=== PATIENT | female | born 1985 | race Caucasian/White ===

== ENCOUNTER → 2016-11-21 | Outpatient (CLI) | payer OTHER ==
[~2016-11-21] MED LIST: ACET50TA PO; IBUP-1114 PO; PRENTAB55 PO
--- NOTE | 2016-11-21 16:19 | REP ---
Clinical: Vaginal bleeding . Technique: Transabdominal pelvic ultrasound followed by transvaginal examination for better evaluation of the endometrium and adnexa with color Doppler evaluation of the ovaries. Findings: Bladder is unremarkable and measures 10.5 x 5.5 x 6.5 cm . Normal retroverted uterus measures 10.6 x 5.2 x 5.4 cm . The endometrial complex measures 11.7 mm thickness. No discrete uterine or endometrial abnormalities are appreciated. Bilateral ovaries are normal in appearance and vascularity without evidence for torsion. Right ovary measures 4.8 x 3.0 x 3.3 cm with 2.5 cm simple cyst ; R I = 0.51 . Left ovary measures 4.6 x 1.6 x 2.2 cm ; R I = 0.53 . No pelvic free fluid or adnexal mass lesion . Impression: 1. 2.5 cm right ovarian cyst likely physiologic. Otherwise normal examination. Signed by Lane Norris MD 11/21/2016 04:09 P
== END ==
LOC: M SMT 15:01
PROVIDERS: ATTEND Obstetrics & Gynecology
DX: N93.9 Abnormal uterine and vaginal bleeding, unspecified (principal); N83.201 Unspecified ovarian cyst, right side

== ENCOUNTER → 2017-01-21 | Day surgery (SDC) | payer OTHER ==
[~2017-01-21] VITALS: Ht 160 cm; Wt 67.1 kg
[~2017-01-21] MED LIST changes: +CLINDAMYCIN 900 MG in APPROPRIATE DILUENT 1 EA IV ONE; +GENTAMICIN 100 MG in APPROPRIATE DILUENT 1 EA IV ONE; +LIDOCAINE 2% INJ 100 MG/5 ML SDV (FOR ANES.) As Ordered ONE; +LR 1,000 ML IV SCH; +MIDAZOLAM INJ 2 MG/2 ML VIAL (J2250) As Ordered ONE; +PROPOFOL 200 MG/20 ML VIAL As Ordered ONE; +ROCURONIUM BROMIDE 50 MG/5 ML VIAL As Ordered ONE; +fentaNYL 250 MCG/5 ML INJECTION (J3010) As Ordered ONE
[2017-01-21 06:18] LABS: MEAN CORPUSCULAR HEMOGLOBIN 28.3 pg (27.0-33.0); MEAN CORPUSCULAR HGB CONC 33.3 g/dl (32.0-36.5); MEAN CORPUSCULAR VOLUME 85.1 fl (80.0-96.0); RED CELL DISTRIBUTION WIDTH 12.1 % (11.5-14.5); WHITE BLOOD COUNT 4.7 K/mm3 (4.0-10.0)
[2017-01-21 06:30] LABS: CONTROL LINE HCG INT CTR LINE PRESENT
== END ==
LOC: M SDC 05:32
PROVIDERS: ATTEND Obstetrics & Gynecology
DX: Z53.09 Procedure and treatment not carried out because of other contraindication (principal); N92.0 Excessive and frequent menstruation with regular cycle; N80.9 Endometriosis, unspecified

== ENCOUNTER → 2017-01-23 | Outpatient (CLI) | payer OTHER ==
[~2017-01-23] MED LIST changes: -CLINDAMYCIN 900 MG in APPROPRIATE DILUENT 1 EA IV ONE; -GENTAMICIN 100 MG in APPROPRIATE DILUENT 1 EA IV ONE; -LIDOCAINE 2% INJ 100 MG/5 ML SDV (FOR ANES.) As Ordered ONE; -LR 1,000 ML IV SCH; -MIDAZOLAM INJ 2 MG/2 ML VIAL (J2250) As Ordered ONE; -PROPOFOL 200 MG/20 ML VIAL As Ordered ONE; -ROCURONIUM BROMIDE 50 MG/5 ML VIAL As Ordered ONE; -fentaNYL 250 MCG/5 ML INJECTION (J3010) As Ordered ONE
== END ==
LOC: M SMT 09:16
PROVIDERS: ATTEND Obstetrics & Gynecology
DX: N91.2 Amenorrhea, unspecified (principal)

== ENCOUNTER 2017-02-25 13:20 | Emergency (ER) | payer OTHER ==
[~2017-02-25] VITALS: Ht 160 cm; Wt 66.7 kg
[2017-02-25] MEDS ORDERED: PRENTAB16 PO (13:30)
[2017-02-25] MEDS ORDERED: NS 1,000 ML IV ONE (14:00)
[2017-02-25] MEDS ORDERED: MECLIZINE 25 MG TABLET PO ONE (14:00)
[2017-02-25 14:40] LABS: MEAN CORPUSCULAR HGB CONC 33.8 g/dl (32.0-36.5); MEAN CORPUSCULAR VOLUME 85.6 fl (80.0-96.0); PLATELET COUNT, AUTOMATED 232 k/mm3 (150-450); RED CELL DISTRIBUTION WIDTH 11.9 % (11.5-14.5); WHITE BLOOD COUNT 5.1 K/mm3 (4.0-10.0)
[2017-02-25 14:41] LABS: BASO % 0.5 % (0.0-1.0); DIFF SLIDE NUMBER 276; EOS % 0.7 % (0.0-3.0); LARGE UNSTAINED CELL # 0.1 K/mm3 (0.0-0.4); LARGE UNSTAINED CELL % 1.4 % (0.0-4.0); LYMPH # 1.3 K/mm3 (1.5-6.5); LYMPH % 25.1 % (24.0-44.0); MONO # 0.2 K/mm3 (0.0-0.8); MONO % 3.7 % (0.0-5.0); NEUTROPHILS # 3.5 K/mm3 (1.8-7.7); NEUTROPHILS % 68.6 % (36.0-66.0)
[2017-02-25] MEDS ORDERED: diphenhydrAMINE INJ 50MG/ML VIAL (J1200) IV STA (15:11)
[2017-02-25] MEDS ORDERED: METOCLOPRAMIDE INJ 10MG/2ML VIAL (J2765) IV ONE (15:15)
[2017-02-25 15:17] LABS: ALBUMIN 3.5 GM/DL (3.2-5.2); ALKALINE PHOSPHATASE 39 U/L (45-117); ALT/SGPT 14 U/L (12-78); ANION GAP 6 MEQ/L (8-16); AST/SGOT 15 U/L (15-37); BILIRUBIN,DIRECT 0.1 MG/DL (0.0-0.2); BILIRUBIN,TOTAL 0.5 MG/DL (0.2-1.0); BLOOD UREA NITROGEN 9 MG/DL (7-18); CARBON DIOXIDE LEVEL 26 MEQ/L (21-32); CHLORIDE LEVEL 105 MEQ/L (98-107); CREATININE FOR GFR 0.55 MG/DL (0.55-1.02); FERRITIN 14 NG/ML (8-252); FREE T4 0.89 NG/DL (0.76-1.46); GLOMERULAR FILTRATION RATE > 60.0 (>60); GLUCOSE, FASTING 82 MG/DL (70-105); HCG, SERUM QUANTITATIVE 43158 MIU/ML; PERCENT SATURATION 24.9 % (13.2-37.4); POTASSIUM SERUM 3.9 MEQ/L (3.5-5.1); SODIUM LEVEL 137 MEQ/L (136-145); TOTAL IRON BINDING CAPACITY 377 UG/DL (250-450)
[2017-02-25] MEDS ORDERED: ACETAMINOPHEN 325 MG TAB PO ONE (15:30)
[2017-02-25] MEDS ORDERED: MECL-68 PO (15:56)
[2017-02-25 16:20] VITALS: BP 108/61
== END 2017-02-25 16:26 | disposition home or self-care (01) ==
LOC: M ED 14:01
DX: O99.89 Other specified diseases and conditions complicating pregnancy, childbirth and the puerperium (principal); H81.11 Benign paroxysmal vertigo, right ear; H81.391 Other peripheral vertigo, right ear; Z3A.09 9 weeks gestation of pregnancy; Z85.41 Personal history of malignant neoplasm of cervix uteri; R51 Headache; F41.9 Anxiety disorder, unspecified; Z79.899 Other long term (current) drug therapy; Z91.040 Latex allergy status; Z88.5 Allergy status to narcotic agent; Z88.0 Allergy status to penicillin
CPT/HCPCS: 80048; 80076; 81001; 82728; 83550; 84439; 84443; 84702; 85025; 86901; 96374; 96375; 99283; J1200; J2765

== ENCOUNTER → 2017-03-10 | Outpatient (CLI) | payer OTHER ==
[~2017-03-10] MED LIST changes: +MECL-68 PO; +PRENTAB16 PO
[2017-03-10 14:04] LABS: BASO % 0.5 % (0.0-1.0); EOS % 0.7 % (0.0-3.0); LARGE UNSTAINED CELL # 0.1 K/mm3 (0.0-0.4); LARGE UNSTAINED CELL % 1.1 % (0.0-4.0); LYMPH # 1.1 K/mm3 (1.5-6.5); LYMPH % 26.1 % (24.0-44.0); MEAN CORPUSCULAR HEMOGLOBIN 29.6 pg (27.0-33.0); MEAN CORPUSCULAR HGB CONC 33.5 g/dl (32.0-36.5); MEAN CORPUSCULAR VOLUME 88.5 fl (80.0-96.0); MONO # 0.1 K/mm3 (0.0-0.8); MONO % 3.1 % (0.0-5.0); NEUTROPHILS % 68.5 % (36.0-66.0); PLATELET COUNT, AUTOMATED 237 k/mm3 (150-450); RED CELL DISTRIBUTION WIDTH 11.8 % (11.5-14.5); WHITE BLOOD COUNT 4.4 K/mm3 (4.0-10.0)
[2017-03-11 10:18] LABS: HBsAg Prenatal NEGATIVE (NEGATIVE)
== END ==
LOC: M SMT 10:09
PROVIDERS: ATTEND Obstetrics & Gynecology
DX: Z34.81 Encounter for supervision of other normal pregnancy, first trimester (principal); Z36 Encounter for antenatal screening of mother

== ENCOUNTER → 2017-03-20 | Day surgery (SDC) | payer OTHER ==
[~2017-03-20] VITALS: Ht 160 cm; Wt 64.9 kg
[~2017-03-20] MED LIST changes: +CHLOROPROCAINE 2 % INJ PRES.FREE 20 ML VIAL (J2400) As Ordered ONE; +INDO50CA PO; +INDOMETHACIN 25 MG CAP PO PRN; +LR 1,000 ML IV ONE; +LR 1,000 ML IV SCH; +ONDANSETRON 4 MG TAB (S0181) PO PRN; +ONDANSETRON 4MG/2ML VIAL (J2405) As Ordered ONE; +ONDANSETRON 4MG/2ML VIAL (J2405) IV PRN; +PHENYLephrine HCL 500 MCG/5 ML (100MCG/ML) SYRINGE (J2370) As Ordered ONE; +SILVER NITRATE APPLICATOR As Ordered ONE; +diphenhydrAMINE 25 MG CAP PO PRN; +ePHEDrine SULFATE 25 MG/5 ML(5MG/ML) SYRINGE As Ordered ONE; +fentaNYL 100 MCG/2 ML INJECTION (J3010) As Ordered ONE; +fentaNYL 100 MCG/2 ML INJECTION (J3010) IV PRN
[2017-03-20 07:39] LABS: MEAN CORPUSCULAR HGB CONC 33.6 g/dl (32.0-36.5); MEAN CORPUSCULAR VOLUME 86.4 fl (80.0-96.0); RED CELL DISTRIBUTION WIDTH 12.2 % (11.5-14.5)
[2017-03-20 11:30] VITALS: BP 106/56
--- NOTE | 2017-03-21 12:10 | RO ---
DATE OF PROCEDURE: 03/20/2017 PREOPERATIVE DIAGNOSES: 1. History of cervical insufficiency. 2. 12 weeks and 2 days gestation. POSTOPERATIVE DIAGNOSES: 1. History of cervical insufficiency. 2. 12 weeks and 2 days gestation. PROCEDURE PERFORMED: 1. Waters cerclage 2. Cystoscopy. SURGEON: Dr. Pablo Nugent DO FACOG COMPOUNDER: ORIANA Tineo-3 ANESTHESIA: Spinal. SPECIMENS TO PATHOLOGY: None. ESTIMATED BLOOD LOSS: Less than 5 mL. FLUIDS REPLACED: 1400 mL lactated Ringer's. DRAINS: In-and-out catheter, 100 mL urine output. COMPLICATIONS: None. PREOPERATIVE ANTIBIOTICS: None indicated. INTRAOPERATIVE FINDINGS: 1. Prolene suture was used for the cerclage. The knot was tied at 12 o'clock. 2. Cystoscopic findings: bilateral utero-ovarian jets and no stitch noted in the wall of the bladder. INDICATION: 31-year-old G10, P3-0-6-3. She has a history of cervical insufficiency. Two previous pregnancies have been treated with a cerclage, and each resulted in term deliveries. PROCEDURE: The patient was counseled and consented on risks, benefits, indications and alternatives of the procedure. Informed consent was obtained. She was taken to the operating room with an IV running. She was placed on the operating table. Spinal anesthesia was administered without any difficulty. She was placed in the dorsal supine position. A time-out was performed per protocol. She was placed in the high lithotomy position. She was prepared and draped in normal sterile fashion. The bladder was drained with a sterile in-and-out catheter. An Auvard weighted speculum was placed in the posterior vagina. A Jerry retractor was placed in the anterior vagina. Using 1-Prolene suture, a five-point pursestring stitch was placed around the cervix at the level of the cervicovaginal junction. The knot was tied at 12 o'clock. Excellent hemostasis was noted throughout this process. After this stitch was placed, the patient complained of periumbilical pain that was predominately on the right side. This was after I had taken her out of the high lithotomy position. Given this complaint, she was placed back in the high lithotomy position. Given the unilateral nature of her complaint, the decision was made to proceed with a diagnostic cystoscopy to ensure that ureteral flow was still intact and there was no stitch within the bladder. A 30 degrees cystoscope was placed transurethrally into the bladder. The bladder was instilled with normal saline. The inspection of the entire bladder revealed no evidence of any suture material. Bilateral utero-ovarian efflux/jets were visualized. The cystoscope was removed. The bladder was drained. The vagina had been flushed with normal saline, no vaginal bleeding or copious amounts of discharge was noted. The patient was slowly taken out of high lithotomy position. She no longer had any complaint of periumbilical pain or right-sided abdominal pain. The decision was made to conclude the procedure. The sponge, lap, needle and instrument counts were correct. The patient was transferred to the postanesthesia care unit in good and stable condition. Of note, all instruments were removed from the vagina and confirmed by vaginal exam. KRYSTIN
== END | disposition home or self-care (01) ==
LOC: M SDC 07:11
PROVIDERS: ATTEND Obstetrics & Gynecology
DX: O34.31 Maternal care for cervical incompetence, first trimester (principal); Z3A.12 12 weeks gestation of pregnancy; K57.32 Diverticulitis of large intestine without perforation or abscess without bleeding; N85.00 Endometrial hyperplasia, unspecified; R55 Syncope and collapse; G43.909 Migraine, unspecified, not intractable, without status migrainosus; R06.83 Snoring; Z91.040 Latex allergy status; Z88.0 Allergy status to penicillin; Z88.5 Allergy status to narcotic agent; Z92.21 Personal history of antineoplastic chemotherapy; Z92.3 Personal history of irradiation; Z85.41 Personal history of malignant neoplasm of cervix uteri
CPT/HCPCS: 36415; 59320; 85027; 86850; 86900; 86901; J2370; J2400; J2405; J3010

== ENCOUNTER → 2017-05-19 | Outpatient (CLI) | payer OTHER ==
[~2017-05-19] MED LIST changes: -CHLOROPROCAINE 2 % INJ PRES.FREE 20 ML VIAL (J2400) As Ordered ONE; +FIORCAP3 PO; -INDOMETHACIN 25 MG CAP PO PRN; -LR 1,000 ML IV ONE; -LR 1,000 ML IV SCH; +NIFE10CA2 PO; -ONDANSETRON 4 MG TAB (S0181) PO PRN; -ONDANSETRON 4MG/2ML VIAL (J2405) As Ordered ONE; -ONDANSETRON 4MG/2ML VIAL (J2405) IV PRN; +OXYC1TAB23 PO; -PHENYLephrine HCL 500 MCG/5 ML (100MCG/ML) SYRINGE (J2370) As Ordered ONE; -SILVER NITRATE APPLICATOR As Ordered ONE; -diphenhydrAMINE 25 MG CAP PO PRN; -ePHEDrine SULFATE 25 MG/5 ML(5MG/ML) SYRINGE As Ordered ONE; -fentaNYL 100 MCG/2 ML INJECTION (J3010) As Ordered ONE; -fentaNYL 100 MCG/2 ML INJECTION (J3010) IV PRN
--- NOTE | 2017-05-19 23:52 | REP ---
Clinical: Anatomical evaluation. Comparison: None . Findings: Examination demonstrates a single live intrauterine in breech presentation. motion is identified by technologist. Placenta is noted posteriorly and grade zero without evidence for placenta previa or abruption. Amniotic fluid volume is normal. Cervix measures 5.3 cm in length and appears closed. No evidence for nuchal cord. Gestational age by LMP 20 weeks 6 days with PATY 09/30/2017 . Gestational age by current measurements 20 weeks 5 days with PATY 10/01/2017 . FHR equals 153 beats per minute. BPD 4.9 cm 20 weeks 6 days HC 18.4 cm 20 weeks 5 days AC 15.7 cm 20 weeks 6 days FL 3.3 cm 20 weeks 1 day HL 3.3 cm 20 weeks 6 days HC/AC ratio 1.17 Estimated weight 363 grams ( 36 percentile). Anatomical assessment demonstrates normal structures including cranium, choroid plexus, cavum, cerebellum/posterior fossa, facial features, lungs, four-chamber heart/ventricular outflow tracts, diaphragm, stomach, cord insertion/three-vessel cord, kidneys/bladder, spine, and extremities. Impression: Single live intrauterine in breech presentation demonstrating appropriate interval growth. Anatomical assessment is complete and normal. No gross abnormalities are identified. Signed by Lane Norris MD 05/19/2017 11:43 P
== END ==
LOC: M RAD 10:48
PROVIDERS: ATTEND Specialist
DX: Z34.82 Encounter for supervision of other normal pregnancy, second trimester (principal); Z36 Encounter for antenatal screening of mother; Z3A.20 20 weeks gestation of pregnancy

== ENCOUNTER → 2017-07-03 | Outpatient (CLI) | payer OTHER ==
[2017-07-03 13:22] LABS: BASO % 0.4 % (0.0-1.0); EOS % 0.9 % (0.0-3.0); LARGE UNSTAINED CELL % 0.8 % (0.0-4.0); MEAN CORPUSCULAR HEMOGLOBIN 28.5 pg (27.0-33.0); MEAN CORPUSCULAR VOLUME 86.6 fl (80.0-96.0); MONO # 0.3 K/mm3 (0.0-0.8); NEUTROPHILS # 3.6 K/mm3 (1.8-7.7); NEUTROPHILS % 72.9 % (36.0-66.0); PLATELET COUNT, AUTOMATED 183 k/mm3 (150-450); RED CELL DISTRIBUTION WIDTH 12.1 % (11.5-14.5)
== END ==
LOC: M SMT 09:55
PROVIDERS: ATTEND Obstetrics & Gynecology
DX: O09.292 Supervision of pregnancy with other poor reproductive or obstetric history, second trimester (principal)

== ENCOUNTER 2017-07-14 17:01 | Inpatient (IN) | payer OTHER ==
[~2017-07-14] VITALS: Ht 160 cm; Wt 70.0 kg
[~2017-07-14 17:01] MED LIST changes: -FIORCAP3 PO; -NIFE10CA2 PO; -OXYC1TAB23 PO
[2017-07-14 17:23] VITALS: BP 113/66
[2017-07-14] MEDS ORDERED: FIORCAP3 PO (17:36)
[2017-07-14 19:00] LABS: MEAN CORPUSCULAR HEMOGLOBIN 28.6 pg (27.0-33.0); MEAN CORPUSCULAR HGB CONC 33.8 g/dl (32.0-36.5); MEAN CORPUSCULAR VOLUME 84.6 fl (80.0-96.0); RED CELL DISTRIBUTION WIDTH 11.9 % (11.5-14.5); WHITE BLOOD COUNT 8.3 K/mm3 (4.0-10.0)
[2017-07-14 19:09] VITALS: BP 130/72
[2017-07-14] MEDS ORDERED: LR 1,000 ML IV SCH (19:33)
[2017-07-14] MEDS ORDERED: LACTATED RINGER'S 1000 ML IV STA (19:33)
[2017-07-14] MEDS ORDERED: MAG Sulf (OBGYN) 20GM/500ML 20,000 MG in APPROPRIATE DILUENT 1 EA IV SCH (19:36)
[2017-07-14] MEDS ORDERED: MAG Sulf (L&D) 4 GM/100 ML 4 GM in APPROPRIATE DILUENT 1 EA IV ONE (19:45)
[2017-07-14] MEDS ORDERED: BETAMETHASONE SOLUSPAN 6MG/ML INJ 5ML (J0702) IM SCH (19:45)
[2017-07-14] MEDS ORDERED: INDOMETHACIN 25 MG CAP PO ONE (20:00)
[2017-07-14 20:24] VITALS: BP 111/56
[2017-07-14] MEDS ORDERED: FIORICET TAB PO PRN (20:30)
--- NOTE | 2017-07-14 20:57 | HPE ---
DATE OF ADMISSION: 07/14/2017 HISTORY: A 32-year-old G10, P3-0-6-3 female at 28-6/7 weeks gestation by 7-week ultrasound, estimated date of confinement (EDC) 09/30/2017, presents with regular contractions starting at about 4 a.m. on the day of admission. Contractions increased in intensity by 2 p.m. and were every 3-4 minutes. She presented to the office and was found to have a cervix that was closed. Her history is significant for a Waters cerclage placed earlier in the due a history of cervical incompetence. When the contractions palpated to be moderate in intensity she was sent to the hospital for further evaluation and treatment. COURSE: The patient initiated care at 12 weeks gestation on 03/18/2017. Her first trimester blood pressure was 122/80, weight 144 pounds. She had Waters cervical cerclage placed on 03/20/2017 without complication. She was treated with Fioricet for daily headaches. She did not receive progesterone supplementation during . MEDICAL HISTORY: 1. Anxiety. 2. Cervical dysplasia. 3. Endometriosis. 4. History of pneumothorax, status post chest tube placement in 2010. OBSTETRICAL HISTORY: 1. January 2006, 18-week loss. 2-6 five miscarriages, including ectopic . 7. November 2013, 38-week vaginal delivery, 6-pound 1-ounce male . 8. May 2015, 38-week vaginal delivery of a 7-pound 1-ounce female. was completed by incompetent cervix with emergency cerclage at 23 weeks' gestation. 9. July 2016, 37-week vaginal delivery of a 7-pound 2-ounce female . She had prophylactic Shirodkar cerclage placed for that . SURGICAL HISTORY: 1. Cerclage times three. 2. Dilatation and curettage (DAC) times six. 3. Laparoscopic ovarian cystectomy. 4. Loop electrosurgical excision procedure (LEEP) procedure times two. 5. Chest tube placement in 2010. ALLERGIES: 1. PENICILLIN. 2. MORPHINE. 3. LATEX. SOCIAL HISTORY: The patient is . Father of the baby is in the , currently stationed in [place]. Denies cigarettes, alcohol, or drug use. PHYSICAL EXAMINATION: VITAL SIGNS: Blood pressure 130/72, pulse 112, temperature 99.1. She appears uncomfortable. HEAD AND NECK: Normal. LUNGS: Clear. HEART: Regular rate and rhythm. ABDOMEN: Nontender, gravid, heart tones category 1. Contractions every 2-4 minutes, moderate to palpation. Cervix: 1 cm, 50% effaced, soft, posterior. EXTREMITIES: Nontender. LABORATORY DATA: White blood count 8.3, hemoglobin 11.7. ASSESSMENT: A 32-year-old G10, P3 female at 28-6/7 weeks gestation by a 7-week ultrasound, presents with contractions, suspect labor. Patient will be admitted for intravenous (IV) hydration. Start magnesium sulfate for neuroprotection and will administer betamethasone for lung maturity. Will initiate indomethacin treatment for labor. Will plan to obtain an ultrasound to check cervical length and assess the fetus. If she progresses and continues to dilate, will have to remove the cerclage and contemplate transfer to [facility] in [place] for further management. KRYSTIN
[2017-07-14 21:07] VITALS: BP 102/54
[2017-07-14] MEDS ORDERED: ONDANSETRON 4MG/2ML VIAL (J2405) As Ordered ONE (21:43)
[2017-07-14] MEDS ORDERED: ONDANSETRON 4MG/2ML VIAL (J2405) IV PRN (21:45)
[2017-07-14 22:01] VITALS: BP 110/53
--- NOTE | 2017-07-14 22:30 | REPUSA ---
Clinical history: labor. Findings: Real-time transabdominal ultrasound images of the pelvis were obtained. There is a single l vinay intrauterine measuring 28 weeks 6 days by ultrasound measurements. The fetus is in a ve rtex position. A posterior placenta is noted, without evidence of placenta previa. Limited visualized anatomy is unremarkable. heart rate measures 143 bpm. Cervix measures 2 cm in length. Fu nneling of the internal cervical os is appreciated. A cerclage is in place. The patient is dilated 1. 5 cm. Amniotic fluid index measures 13.6 cm. Umbilical artery systolic/diastolic ratio measures 2.40 , with the resistive index of 0.58. Impression: 1. Single live intrauterine with heart rate of 143 bpm.. Fetus is in a vertex positio n. 2. Cervix measures 2 cm in length. Funneling of the internal cervical os is appreciated. Patient is d ilated 1.5 cm. 3. Amniotic fluid index is within normal limits.
[2017-07-14 22:57] VITALS: BP 114/58
[2017-07-14] MEDS ORDERED: CLINDAMYCIN 300 MG in APPROPRIATE DILUENT 1 EA IV ONE (23:15)
--- NOTE | 2017-07-22 16:09 | DSES ---
DATE OF ADMISSION: 07/14/2017 DATE OF DISCHARGE: 07/15/2017 HISTORY: 32-year-old 10, para 3-0-6-3 female, 28-6/7 weeks gestation by a 7-week ultrasound, presents with regular contractions about 4 a.m. on the day of admission. The contractions increased in intensity and at 2 p.m. were every 3-4 minutes. Her history is significant for a Waters cervical cerclage which was placed earlier in the due to history of cervical incompetence. Contractions were found to be moderately intense and she was sent to the hospital for further management. HOSPITAL COURSE: The patient was found to be cookie regularly and moderately strong. Her cervix dilated to 1 cm which was a change. An ultrasound showed funneling of the cervix as well as shortening of the cervix. Decision was made to treat the patient with magnesium sulfate for neuroprotection and administer betamethasone for lung maturity. The patient received indomethacin as a tocolytic. She also received IV hydration. In spite of aggressive management, the patient continued to contract with virtually no change. Contractions were intense, every 3-4 minutes. She had her cervix checked multiple times and there was no evidence of cervical change. However, due to persistent intense contractions, a consultation was obtained with the center in [place], who was in agreement to accept the patient in transfer due to the high risk of severe prematurity. On 07/14/2017, the patient was transferred to the center by ambulance. ADMISSION DIAGNOSIS: at 28-6/7 weeks gestation with pre-term contractions. DISCHARGE DIAGNOSIS: at 28-6/7 weeks gestation with pre-term contractions. DISPOSITION: Patient will be managed per the center and once stable she will be discharged home with followup in our office.
== END 2017-07-15 | disposition short-term general hospital (02) | DRG 775 ==
LOC: M LDO 17:01 → M LDI 19:31
PROVIDERS: ADMIT Specialist; ATTEND Specialist
DX: O60.12X0 Preterm labor second trimester with preterm delivery second trimester, not applicable or unspecified (principal); O34.32 Maternal care for cervical incompetence, second trimester; Z3A.28 28 weeks gestation of pregnancy; Z87.51 Personal history of pre-term labor; Z88.0 Allergy status to penicillin; Z88.5 Allergy status to narcotic agent; Z91.040 Latex allergy status

== ENCOUNTER 2017-08-05 09:33 | Outpatient (CLI) | payer OTHER ==
[~2017-08-05] VITALS: Ht 160 cm; Wt 70.5 kg
[~2017-08-05 09:33] MED LIST changes: +FIORCAP3 PO
[2017-08-05 10:07] VITALS: BP 120/66
[2017-08-05] MEDS ORDERED: NIFE10CA2 PO (10:16)
[2017-08-05] MEDS ORDERED: ACET50TA PO (10:16)
[2017-08-05] MEDS: BETAMETHASONE SOLUSPAN 6MG/ML INJ 5ML (J0702) IM SCH ×2 (10:25→22:53)
[2017-08-05 11:56] VITALS: BP 117/68
[2017-08-05 13:52] VITALS: BP 111/58
--- NOTE | 2017-08-05 15:29 | HPE ---
DATE OF ADMISSION: 08/05/2017 HISTORY: 32-year-old, 10, para 3-0-6-3 female at 32-0/7 weeks gestation by a 7 week ultrasound, estimated date of confinement (EDC) of 09/30/2017, presents to the hospital for a scheduled visit to receive her first dose of betamethasone for lung maturity. She notes that her contractions have increased in intensity early on the morning of admission and she has had increasing pelvic pressure. She has been treated with nifedipine for the last several weeks due to history of contractions and had previously been at [facility] in [place] for contractions. She has a cervical cerclage in place and is also concerned about complications with cerclage due to contractions. COURSE: The patient initiated care at 12 weeks of gestation on 03/18/2017. First trimester blood pressure 122/80, weight 144 pounds. She had a Waters cervical cerclage placed on 03/20/2017, without complication. She did not receive progesterone supplementation during due to intolerance to that medication. She was transferred to the center at [facility] on 07/14/2017, with contractions with cerclage in place. She received betamethasone at that time times two doses. She received magnesium sulfate for neurologic prophylaxis and was treated with indomethacin. She was discharged from [place] after several days of observation on nifedipine for contractions. MEDICAL HISTORY: 1. Anxiety. 2. Cervical dysplasia. 3. Endometriosis. 4. History of pneumothorax, status post chest tube placement in 2010. OBSTETRICAL HISTORY: 1: January 2006: 18 week loss. 2 through 6: Five miscarriages, including one ectopic . 7: November 2013: 38 week vaginal delivery of a 6 pound 1 ounce male . 8: May 2015: 38 week vaginal delivery of a 7 pound 1ounce female. was complicated by incompetent cervix with emergency cerclage placed at 23 weeks' gestation. 9: July 2016: 37 week vaginal delivery of a 7 pound 2 ounce female infant. She had prophylactic Shirodkar cerclage placed for that . SURGICAL HISTORY: 1. Cerclage times three. 2. Dilatation and curettage (D and C) times six. 3. Laparoscopic ovarian cystectomy. 4. Loop electrosurgical excision procedure (LEEP) procedure times two. 5. Chest tube placement in 2010. ALLERGIES: PENICILLIN, MORPHINE, LATEX. SOCIAL HISTORY: The patient is . The father of the baby is in the and has returned recently from training in [place], he is at home with the patient's other children. The patient denies cigarettes, alcohol, or drug use. PHYSICAL EXAMINATION: Blood pressure 128/74, pulse 100, temperature afebrile. She appears moderately uncomfortable. HEAD AND NECK EXAM: Normal. LUNGS: Clear. HEART: Regular rate and rhythm. ABDOMEN: Nontender, gravid, heart tones category 1. Contractions every 2-4 minutes, moderate to palpation. CERVIX: 1-2 cm dilated, 70% effaced, soft, posterior. EXTREMITIES: Nontender. ASSESSMENT: 32-year-old 10, para 3 female at 32-0/7 weeks gestation by a 7 week ultrasound presents with contractions and history of cervical incompetence with a Waters cerclage in place. The patient received betamethasone. She will be observed overnight for contractions. If there appears to be significant pressure on the cervical cerclage, it will be removed in the very near future. Would consider magnesium sulfate for neuroprotection if the patient breaks through and appears close to delivery.
[2017-08-05 16:22] VITALS: BP 122/55
[2017-08-05] MEDS: ACETAMINOPHEN 500 MG TAB PO PRN ×2 (16:24→23:03)
[2017-08-05] MEDS: NIFEdipine 10 MG CAP PO SCH ×2 (17:12→22:55)
[2017-08-05 20:06] VITALS: BP 114/58
[2017-08-05 22:54] VITALS: BP 113/74
[2017-08-06 06:00] VITALS: BP 119/56
[2017-08-06] MEDS: NIFEdipine 10 MG CAP PO SCH ×2 (06:15→14:33)
[2017-08-06] MEDS: ACETAMINOPHEN 500 MG TAB PO PRN ×2 (06:16→12:38)
--- NOTE | 2017-08-06 07:53 | REP ---
Clinical: Growth evaluation. Comparison: 07/14/2017 . Findings: Examination demonstrates a single live intrauterine in cephalic presentation. motion is identified by technologist. Placenta is noted posteriorly and grade one without evidence for placenta previa or abruption. Amniotic fluid volume is normal. Cervix measures 4.6 cm in length and appears closed. No evidence for nuchal cord. Gestational age by LMP 32 weeks 0 days with PATY 09/30/2017 . Gestational age by current measurements 33 weeks 3 day with PATY 09/20/2017 FHR equals 169 beats per minute. BPD 8.6 cm 34 weeks 4 days HC 30.6 cm 34 weeks 1 day AC 31.2 cm 35 weeks 2 days FL 6.3 cm 32 weeks 4-day HL 5.5 cm 32 weeks 0 days HC/AC ratio 0.98 Estimated weight 2390 grams ( 92% by LMP; 85% by current measurements). Amniotic fluid index 26.5 cm (8.6 - 24.2). Umbilical cord SD ratio 2.04 (2.50 - 3.50). Impression: 1. Single live intrauterine in cephalic presentation demonstrating appropriate interval growth. 2. Nuchal cord cannot be excluded. 3. Amniotic fluid volume is upper limits of normal. Signed by Lane Norris MD 08/06/2017 07:45 A
[2017-08-06 10:00] VITALS: BP 108/58
[2017-08-06 14:00] VITALS: BP 115/58
[2017-08-06 14:23] VITALS: BP 117/65
[2017-08-06 14:33] VITALS: BP 117/65
== END 2017-08-06 18:29 | disposition home or self-care (01) ==
LOC: M LDO 09:33 → M OBS 08-06 05:16 → M LDO 08-06 18:29
PROVIDERS: ATTEND Specialist
DX: Z34.83 Encounter for supervision of other normal pregnancy, third trimester (principal); Z3A.32 32 weeks gestation of pregnancy; O34.33 Maternal care for cervical incompetence, third trimester; Z87.51 Personal history of pre-term labor; O09.293 Supervision of pregnancy with other poor reproductive or obstetric history, third trimester; O60.13X0 Preterm labor second trimester with preterm delivery third trimester, not applicable or unspecified; O99.343 Other mental disorders complicating pregnancy, third trimester; Z91.040 Latex allergy status; Z88.5 Allergy status to narcotic agent; Z88.0 Allergy status to penicillin
CPT/HCPCS: 59025; 76816; 76820; 96372; J0702

== ENCOUNTER 2017-08-09 09:24 | Outpatient (CLI) | payer OTHER ==
[~2017-08-09] VITALS: Ht 160 cm; Wt 71.0 kg
[2017-08-09] VITALS (7 sets, daily range): BP systolic 96–130; BP diastolic 51–74
[~2017-08-09 09:24] MED LIST changes: +NIFE10CA2 PO
[2017-08-09] MEDS ORDERED: LR 1,000 ML IV SCH (10:30)
[2017-08-09] MEDS ORDERED: LR 1,000 ML IV ONE (10:30)
[2017-08-09] MEDS ORDERED: TERBUTALINE SULFATE 1 MG/ML VIAL (J3105) SC ONE (10:30)
--- NOTE | 2017-08-09 10:43 | IPNPDOC ---
Text Note Date of Service The patient was seen on 08/09/17. NOTE 32-year-old 10, para 3, 063, estimated date of delivery September 30 2017 presents at 32 weeks 4 days with increasing contractions since midnight. She reports increased mucousy discharge streaked with blood. Also states she has had decreased movement. has been complicated by threatened labor. She had a Waters cerclage placed that was removed this past Thursday after she was betamethasone complete. She has been taking nifedipine 10 mg every 8 hours by mouth last dose was at midnight. Nanette appears mildly uncomfortable. Fetus is very reactive heart 150, moderate variability with accelerations. Uterine contractions 2-4 minutes apart for 60 seconds. Sterile vaginal exam 3 cm, 50% effaced, presenting part is high. No show on my glove. Consult Dr. Nugent. IV hydration, nifedipine every 8 hours, terbutaline subcutaneous 1. Will update physician as indicated VS,Fishbone, I+O VS, Fishbone, I+O Vital Signs Date Time Temp Pulse Resp B/P (MAP) Pulse Ox O2 Delivery O2 Flow Rate FiO2 08/09/17 09:38 97.6 116 16 118/74 (89) Jena Vicente CNM Aug 09, 2017 10:43
[2017-08-09] MEDS ORDERED: NIFEdipine 10 MG CAP PO SCH ×2 (11:00)
--- NOTE | 2017-08-09 12:38 | IPNPDOC ---
Date Seen The patient was seen on 08/09/17. Progress Note Pt reports UC still uncomfortable despite IV hydration, nifedipine PO and terbutaline SC x 1. UC appear to have spaced out a bit, now about 4 minutes apart FH 155, moderate variability, + accels SVE 3/50/high GBS obtained Will sedate and reassess in approximately 2 hours VS, I&O, 24H, Fishbone Vital Signs/I&O Vital Signs Date Time Temp Pulse Resp B/P (MAP) Pulse Ox O2 Delivery O2 Flow Rate FiO2 08/09/17 11:46 120, 118 20 109/57 (74) 08/09/17 09:38 97.6 Jena Vicente CNM Aug 09, 2017 12:38
[2017-08-09] MEDS ORDERED: PROMETHAZINE INJ 25 MG/ML VIAL (J2550) IV ONE (12:45)
[2017-08-09] MEDS ORDERED: BUTORPHANOL 2 MG/ML INJ (J0595) IV ONE (12:45)
--- NOTE | 2017-08-09 16:25 | IPNPDOC ---
Date Seen The patient was seen on 08/09/17. Progress Note Feeling much better after fluid and IV stadol/phenergan. UC irregular, mild FH 155, moderate variability, + accels SVE unchanged. No show on glove Pt desires discharge. Discharge home with instructions. Keep appt this week. VS, I&O, 24H, Fishbone Vital Signs/I&O Vital Signs Date Time Temp Pulse Resp B/P (MAP) Pulse Ox O2 Delivery O2 Flow Rate FiO2 08/09/17 13:07 91 18 130/66 (87) 99 Room Air 08/09/17 09:38 97.6 I&O- Last 24 Hours up to 6 AM 08/10/17 06:00 Output Total 200 ml Balance -200 ml Laboratory Data Microbiology Microbiology 08/09/17 Group B Streptococcus Screen (NESTOR), Received Pending Jena Vicente CNM Aug 09, 2017 16:25
== END 2017-08-09 16:35 | disposition home or self-care (01) ==
LOC: M LDO 09:24
PROVIDERS: ATTEND Advanced Practice Midwife
DX: O36.8130 Decreased fetal movements, third trimester, not applicable or unspecified (principal); Z3A.32 32 weeks gestation of pregnancy; O34.33 Maternal care for cervical incompetence, third trimester; Z87.51 Personal history of pre-term labor; Z91.040 Latex allergy status; Z88.5 Allergy status to narcotic agent; Z88.0 Allergy status to penicillin
CPT/HCPCS: 59025; 87081; 87186; 96360; 96361; 96372; 96375; J0595; J3105

== ENCOUNTER 2017-08-13 14:14 | Outpatient (CLI) | payer OTHER ==
[~2017-08-13] VITALS: Ht 160 cm; Wt 74.0 kg
[2017-08-13 14:29] VITALS: BP 118/57
== END 2017-08-13 15:51 | disposition home or self-care (01) ==
LOC: M LDO 14:14
PROVIDERS: ATTEND Obstetrics & Gynecology
DX: O47.03 False labor before 37 completed weeks of gestation, third trimester (principal); Z3A.33 33 weeks gestation of pregnancy; O34.33 Maternal care for cervical incompetence, third trimester; O09.293 Supervision of pregnancy with other poor reproductive or obstetric history, third trimester; Z88.5 Allergy status to narcotic agent; Z88.0 Allergy status to penicillin; Z91.040 Latex allergy status

== ENCOUNTER 2017-08-16 10:29 | Outpatient (CLI) | payer OTHER ==
[~2017-08-16] VITALS: Ht 160 cm; Wt 71.7 kg
[2017-08-16 10:46] VITALS: BP 115/69
[2017-08-16] MEDS ORDERED: FIORCAP3 PO (10:57)
[2017-08-16] MEDS ORDERED: OXYC1TAB23 PO (11:51)
== END 2017-08-16 12:14 | disposition home or self-care (01) ==
LOC: M LDO 10:29
PROVIDERS: ATTEND Specialist
DX: O36.8130 Decreased fetal movements, third trimester, not applicable or unspecified (principal); Z3A.33 33 weeks gestation of pregnancy; O47.03 False labor before 37 completed weeks of gestation, third trimester; Z91.040 Latex allergy status; Z88.5 Allergy status to narcotic agent; Z88.0 Allergy status to penicillin

== ENCOUNTER 2017-08-25 11:54 | Inpatient (IN) | payer OTHER ==
[2017-08-25] VITALS (22 sets, daily range): BP systolic 86–118; BP diastolic 50–73
[~2017-08-25] VITALS: Ht 160 cm; Wt 71.8 kg
[~2017-08-25 11:54] MED LIST changes: +OXYC1TAB23 PO
[2017-08-25] MEDS ORDERED: LACTATED RINGER'S 1000 ML IV STA (12:28)
[2017-08-25] MEDS ORDERED: LR 1,000 ML IV SCH (12:28)
[2017-08-25] MEDS ORDERED: VANCOMYCIN HCL 1,000 MG, VIAL MATE ADAPTER 1 EACH in D5W 250 ML IV SCH (13:00)
[2017-08-25 13:02] LABS: MEAN CORPUSCULAR HEMOGLOBIN 26.9 pg (27.0-33.0); MEAN CORPUSCULAR HGB CONC 32.5 g/dl (32.0-36.5); MEAN CORPUSCULAR VOLUME 82.8 fl (80.0-96.0); RED CELL DISTRIBUTION WIDTH 13.4 % (11.5-14.5); WHITE BLOOD COUNT 8.3 10^3/uL (4.0-10.0)
[2017-08-25] MEDS ORDERED: FENTANYL 2MCG/ML ROPIVACAINE 0.2% IN 0.9% NACL 200ML IVBAG As Ordered ONE (14:04)
[2017-08-25] MEDS ORDERED: EPIDURAL/PCA KEYS XX PRN (15:15)
[2017-08-25] MEDS ORDERED: NALOXONE INJ 0.4 MG/1 ML VIAL (J2310) IV PRN (15:15)
[2017-08-25] MEDS ORDERED: diphenhydrAMINE INJ 50MG/ML VIAL (J1200) IV PRN (15:15)
[2017-08-25] MEDS ORDERED: ePHEDrine SULFATE 25 MG/5 ML(5MG/ML) SYRINGE IV PRN (15:15)
[2017-08-25] MEDS ORDERED: FENTANYL/ROPIVACAINE/NACL BAG 200 ML EPIDURAL SCH (15:15)
[2017-08-25] MEDS ORDERED: REFRIGERATOR IV KEYS XX PRN (15:15)
[2017-08-25] MEDS ORDERED: LACTATED RINGER'S 1000 ML IV PRN (15:15)
[2017-08-25] MEDS ORDERED: EPIDURAL COMMENT XX SCH (15:15)
[2017-08-25] MEDS ORDERED: ONDANSETRON 4MG/2ML VIAL (J2405) IV PRN (15:15)
[2017-08-25] MEDS ORDERED: ACETAMINOPHEN 500 MG TAB PO ONE (18:00)
[2017-08-25] MEDS ORDERED: OXYTOCIN DRIP 30 UNITS in APPROPRIATE DILUENT 1 EA IV SCH ×2 (20:15→23:47)
[2017-08-25] MEDS ORDERED: FAMOTIDINE 20 MG TAB PO SCH (21:00)
[2017-08-25] MEDS ORDERED: FAMOTIDINE 20 MG TAB As Ordered ONE (21:44)
[2017-08-25 23:40] LABS: CORD GAS HCO3 V 22.9 MEQ/L; CORD GAS O2 SAT V 81.1 %; CORD GAS PCO2 V 33.2 mmHg; CORD GAS PH V 7.457 UNITS; CORD GAS PO2 V 30.5 mmHg; CORD GAS TCO2 V 23.9 MEQ/L
[2017-08-25 23:42] LABS: CORD GAS ABE A -1.4; CORD GAS HCO3 A 26.4 MEQ/L; CORD GAS PH A 7.292 UNITS; CORD GAS SBC A 21.8 MEQ/L; CORD GAS TCO2 A 28.2 MEQ/L
[2017-08-25] MEDS: LR 1,000 ML IV SCH (23:47)
[2017-08-26] MEDS ORDERED: ONDANSETRON 4MG/2ML VIAL (J2405) IV PRN
[2017-08-26] MEDS ORDERED: DOCUSATE SODIUM 100 MG CAP PO PRN
[2017-08-26] MEDS ORDERED: PROMETHAZINE 25 MG TAB PO PRN
[2017-08-26] MEDS ORDERED: MEASLES,MUMPS,RUBELLA VACCINE INJ (MMR-II) (90707) SC SCH
[2017-08-26] MEDS ORDERED: DIBUCAINE 1% OINTMENT 30GM TOP PRN
[2017-08-26] MEDS ORDERED: RHOGAM 300 MCG (1500 IU) INJ (J2790) IM SCH
[2017-08-26] MEDS ORDERED: ACETAMINOPHEN 500 MG TAB PO PRN
[2017-08-26 02:00] VITALS: BP 99/59
[2017-08-26 06:00] VITALS: BP 94/54
[2017-08-26] MEDS: LR 1,000 ML IV SCH ×3 (07:47→23:47)
[2017-08-26] MEDS: PRENATAL VITAMINS CHEWABLE TABLET PO SCH (07:56)
[2017-08-26] MEDS: IBUPROFEN 800 MG TAB PO PRN (07:56)
[2017-08-26 18:00] VITALS: BP 117/58
[2017-08-27] MEDS: IBUPROFEN 800 MG TAB PO PRN ×2 (00:11→08:35)
[2017-08-27 06:00] VITALS: BP 106/65
[2017-08-27] MEDS: PRENATAL VITAMINS CHEWABLE TABLET PO SCH (08:34)
[2017-08-27] MEDS ORDERED: IBUP-1114 PO (09:35)
== END 2017-08-27 13:05 | disposition home or self-care (01) | DRG 775 ==
LOC: M LDO 11:54 → M LDI 12:27 → M OBS 08-26 01:50
PROVIDERS: ADMIT Obstetrics & Gynecology; ATTEND Obstetrics & Gynecology
PROC: 10E0XZZ Delivery of Products of Conception, External Approach (ICD-10-PCS; principal; 2017-08-25)
PROC: 0HQ9XZZ Repair Perineum Skin, External Approach (ICD-10-PCS; 2017-08-25)
DX: O60.14X0 Preterm labor third trimester with preterm delivery third trimester, not applicable or unspecified (principal); O34.30 Maternal care for cervical incompetence, unspecified trimester; Z37.0 Single live birth; Z3A.34 34 weeks gestation of pregnancy; O40.3XX0 Polyhydramnios, third trimester, not applicable or unspecified; O70.0 First degree perineal laceration during delivery; O69.82X0 Labor and delivery complicated by other cord entanglement, without compression, not applicable or unspecified; O99.820 Streptococcus B carrier state complicating pregnancy

== ENCOUNTER 2017-12-11 06:41 | Day surgery (SDC) | payer OTHER ==
[2017-12-11] MEDS ORDERED: LR 1,000 ML IV (07:00)
[2017-12-11 07:12] LABS: HEMATOCRIT 42.6 % (36.0-47.0); HEMOGLOBIN 14.1 g/dl (12.0-16.0); MEAN CORPUSCULAR HEMOGLOBIN 27.8 pg (27.0-33.0); MEAN CORPUSCULAR HGB CONC 33.1 g/dl (32.0-36.5); PLATELET COUNT, AUTOMATED 258 10^3/uL (150-450); RED BLOOD COUNT 5.07 10^6/uL (4.00-5.40); RED CELL DISTRIBUTION WIDTH 13.2 % (11.5-14.5); WHITE BLOOD COUNT 4.2 10^3/uL (4.0-10.0)
[2017-12-11 07:23] LABS: CONTROL LINE HCG INT CTR LINE PRESENT; HCG, SERUM QUALITATIVE NEGATIVE (NEGATIVE)
[2017-12-11] MEDS ORDERED: PROPOFOL 200 MG/20 ML VIAL As Ordered (08:16)
[2017-12-11] MEDS ORDERED: fentaNYL 250 MCG/5 ML INJECTION (J3010) As Ordered (08:16)
[2017-12-11] MEDS ORDERED: LIDOCAINE 2% INJ 100 MG/5 ML SDV (FOR ANES.) As Ordered (08:16)
[2017-12-11] MEDS ORDERED: ROCURONIUM BROMIDE 50 MG/5 ML VIAL As Ordered ×2 (08:16→11:57)
[2017-12-11] MEDS ORDERED: MIDAZOLAM INJ 2 MG/2 ML VIAL (J2250) As Ordered (08:17)
[2017-12-11] MEDS ORDERED: ePHEDrine INJ 50 MG/ML VIAL As Ordered (08:20)
[2017-12-11] MEDS ORDERED: SILVER NITRATE APPLICATOR As Ordered (09:09)
[2017-12-11] MEDS ORDERED: BUPIVACAINE HCL 0.25% 30 ML VIAL As Ordered (09:09)
[2017-12-11] MEDS ORDERED: METHYLENE BLUE 0.5% (5MG/ML) 10 ML AMP (PROVAYBLUE)(Q9968 PER 1MG) As Ordered (09:09)
[2017-12-11] MEDS: GENTAMICIN 100 MG in APPROPRIATE DILUENT 1 EA IV (09:10)
[2017-12-11] MEDS ORDERED: PHENYLephrine HCL 500 MCG/5 ML (100MCG/ML) SYRINGE (J2370) As Ordered (10:17)
[2017-12-11] MEDS ORDERED: dexameTHASONE 4 MG/ML 1ML VIAL (J1100) As Ordered (10:57)
[2017-12-11] MEDS ORDERED: HYDROmorphone HCL 2 MG/ML 1ML VIAL (J1170) As Ordered (11:13)
[2017-12-11] MEDS ORDERED: ONDANSETRON 4MG/2ML VIAL (J2405) As Ordered (11:53)
[2017-12-11] MEDS ORDERED: GLYCOPYRROLATE INJ 0.2 MG/ML 2 ML VIAL As Ordered ×2 (11:54)
[2017-12-11] MEDS ORDERED: KETOROLAC 60 MG/2 ML VIAL (J1885) As Ordered (11:54)
[2017-12-11] MEDS ORDERED: ONDANSETRON 4MG/2ML VIAL (J2405) IV (13:15)
[2017-12-11] MEDS ORDERED: METOCLOPRAMIDE INJ 10MG/2ML VIAL (J2765) IV (13:15)
[2017-12-11] MEDS ORDERED: PERCOCET 5MG/325MG TAB PO (13:15)
[2017-12-11] MEDS ORDERED: PROMETHAZINE 25 MG TAB PO (13:15)
[2017-12-11] MEDS ORDERED: fentaNYL 100 MCG/2 ML INJECTION (J3010) IV (13:15)
[2017-12-11] MEDS: HYDROmorphone HCL 1 MG/ML SYRINGE (J1170) IV (13:25)
[2017-12-11] MEDS: ONDANSETRON 4 MG ORAL DISINTEGRATING TAB (S0181) SL ×2 (15:56→21:51)
[2017-12-11] MEDS: KETOROLAC 30 MG/ML VIAL (J1885) IV ×2 (15:57→21:51)
[2017-12-11] MEDS: LR 1,000 ML IV ×3 (15:58→21:15)
[2017-12-11] MEDS: CLINDAMYCIN 900 MG in APPROPRIATE DILUENT 1 EA IV (16:49)
[2017-12-11] MEDS: oxyCODONE 5MG TAB PO (19:31)
[2017-12-11] MEDS: DOCUSATE SODIUM 100 MG CAP PO (21:51)
[2017-12-12] MEDS: oxyCODONE 5MG TAB PO ×2 (01:57→08:24)
[2017-12-12] MEDS: KETOROLAC 30 MG/ML VIAL (J1885) IV ×2 (04:06→10:26)
[2017-12-12] MEDS: SIMETHICONE 80 MG CHEW TAB PO (04:13)
[2017-12-12] MEDS: DOCUSATE SODIUM 100 MG CAP PO (08:26)
[2017-12-12] MEDS: ONDANSETRON 4 MG ORAL DISINTEGRATING TAB (S0181) SL (09:50)
== END 2017-12-12 10:30 | disposition home or self-care (01) ==
LOC: M SDC 06:41 → M MS5PR 12:12
DX: N72 Inflammatory disease of cervix uteri (principal); N87.9 Dysplasia of cervix uteri, unspecified; N80.9 Endometriosis, unspecified; N94.6 Dysmenorrhea, unspecified; R10.2 Pelvic and perineal pain; K57.90 Diverticulosis of intestine, part unspecified, without perforation or abscess without bleeding; Z88.0 Allergy status to penicillin; Z88.5 Allergy status to narcotic agent; Z91.040 Latex allergy status
CPT/HCPCS: 58571

== ENCOUNTER → 2018-06-23 | Outpatient (CLI) | payer OTHER | LOC: M SMT 09:02 | DX: Z31.438 Encounter for other genetic testing of female for procreative management (principal) ==

== ENCOUNTER 2019-12-13 12:57 | Emergency (ER) | payer OTHER ==
[~2019-12-13] VITALS: Ht 160 cm; Wt 59.1 kg
[~2019-12-13 12:57] MED LIST changes: -ACET50TA PO; +FISH500C PO; -INDO50CA PO; +INDO50CA91 PO; +MAPA500T2 PO; -MECL-68 PO; +MECL1TAB31 PO; +MM S100C PO
[2019-12-13] MEDS ORDERED: REST0.05 OP (14:52)
[2019-12-13] MEDS ORDERED: MULTCAP PO (14:52)
[2019-12-13] MEDS ORDERED: KETOROLAC 30 MG/ML VIAL (J1885) IV ONE (15:30)
[2019-12-13] MEDS ORDERED: METOCLOPRAMIDE INJ 10MG/2ML VIAL (J2765) IV ONE (15:30)
[2019-12-13] MEDS ORDERED: NS 1,000 ML IV ONE (15:30)
[2019-12-13] MEDS ORDERED: diphenhydrAMINE INJ 50MG/ML VIAL (J1200) IV ONE (15:30)
[2019-12-13 16:02] LABS: BASO % 0.8 % (0.0-1.0); EOS # 0.1 10^3/uL (0.0-0.5); EOS % 2.6 % (0.0-3.0); HEMATOCRIT 42.2 % (36.0-47.0); HEMOGLOBIN 13.5 g/dl (12.0-15.5); LYMPH # 1.7 10^3/uL (1.5-5.0); LYMPH % 33.8 % (24.0-44.0); MEAN CORPUSCULAR HEMOGLOBIN 28.7 pg (27.0-33.0); MEAN CORPUSCULAR VOLUME 89.8 fl (80.0-96.0); MONO # 0.2 10^3/uL (0.0-0.8); MONO % 4.7 % (0.0-5.0); NEUTROPHILS # 2.9 10^3/uL (1.5-8.5); NEUTROPHILS % 57.9 % (36.0-66.0); PLATELET COUNT, AUTOMATED 234 10^3/uL (150-450); WHITE BLOOD COUNT 5.1 10^3/uL (4.0-10.0)
[2019-12-13 16:22] LABS: APPEARANCE, URINE CLEAR (CLEAR); BACTERIA, URINE AUTO 1+ (NEGATIVE); BILIRUBIN, URINE AUTO NEGATIVE (NEGATIVE); BLOOD, URINE BLOOD NEGATIVE (NEGATIVE); COLOR, URINE YELLOW (YELLOW); GLUCOSE, URINE (UA) AUTO NEGATIVE (NEGATIVE); KETONE, URINE AUTO NEGATIVE (NEGATIVE); LEUKOCYTE ESTERASE, URINE AUTO NEGATIVE (NEGATIVE); MUCUS, URINE SMALL (NEGATIVE); NITRITE, URINE AUTO NEGATIVE (NEGATIVE); PROTEIN, URINE AUTO NEGATIVE (NEGATIVE); RBC, URINE AUTO 3 /HPF (0-3); SPECIFIC GRAVITY URINE AUTO 1.018 (1.002-1.035); SQUAMOUS EPITHELIAL CELL UR AU 0 /HPF (0-6); UROBILINOGEN, URINE AUTO 0.2 mg/dL (0.0-2.0); WBC, URINE AUTO 0 /HPF (0-3)
[2019-12-13 16:26] LABS: C REACTIVE PROTEIN QUANTITATIV < 0.30 MG/DL (0.00-0.30)
[2019-12-13 16:33] LABS: ERYTHROCYTE SEDIMENTATION RATE 5 mm/hr (0-20)
[2019-12-13] MEDS ORDERED: PROHANCE 279.3MG/ML 15ML VIAL (A9576) As Ordered ONE (19:58)
--- NOTE | 2019-12-13 20:36 | REPVR ---
PROCEDURE INFORMATION: Exam: MR Head Without and With Contrast Exam date and time: 12/13/2019 8:25 PM Age: 34 years old Clinical indication: Visual disturbance; Patient HX: Blurry vision light sensitive; Additional info: R/O demylinating dz TECHNIQUE: Imaging protocol: MR of the head without and with intravenous contrast. Contrast material: PROHANCE; Contrast volume: 11 ml; Contrast route: 22G ANGIO; COMPARISON: No relevant prior studies available. FINDINGS: Brain: No intracranial hemorrhage or extra-axial fluid collection. No evidence of mass effect or midline shift. No white matter abnormalities. No restricted diffusion to suggest acute infarct. No areas of abnormal intracranial enhancement. Ventricles: Ventricles, cisterns, and sulci are normal. Bones/joints: Unremarkable. Soft tissues: Unremarkable. Mastoid air cells: No mastoid effusion. IMPRESSION: No acute intracranial pathology. Electronically signed by: Douglas Grimes On 12/13/2019 20:36:34 PM
--- NOTE | 2019-12-13 20:38 | REPVR ---
PROCEDURE INFORMATION: Exam: MR Orbit Without and With Contrast Exam date and time: 12/13/2019 8:25 PM Age: 34 years old Clinical indication: Visual changes or disturbances; Patient HX: Blurry vision light sensitive; Additional info: R/O demylinating dz TECHNIQUE: Imaging protocol: MR Orbit was performed without and with intravenous contrast. 3D rendering: MIP and/or 3D reconstructed images were created by the technologist. Contrast material: PROHANCE; Contrast volume: 11 ml; Contrast route: 22G ANGIO; COMPARISON: No relevant prior studies available. FINDINGS: Orbits: Globes are intact. Extraocular muscles are normal. Intraconal fat is normal. Optic nerves are normal. Optic tracts are normal. No areas of abnormal enhancement within the orbits. Sinuses: Small right maxillary sinus retention cyst. Paranasal sinuses are otherwise unremarkable. Soft tissues: Unremarkable. IMPRESSION: No acute findings in the orbits. Electronically signed by: Douglas Grimes On 12/13/2019 20:37:52 PM
[2019-12-13] MEDS ORDERED: TOPIRAMATE (TopAMAX) 25 MG TAB PO ONE (21:15)
[2019-12-13] MEDS ORDERED: TOPA50TA8 PO (21:51)
[2019-12-13 22:09] LABS: VITAMIN B12 LEVEL 407 PG/ML (247-911)
[2019-12-13 22:32] VITALS: BP 119/57
== END 2019-12-13 22:34 | disposition home or self-care (01) ==
LOC: M ED 12:57
DX: G43.909 Migraine, unspecified, not intractable, without status migrainosus (principal); H53.8 Other visual disturbances; R11.0 Nausea; F41.9 Anxiety disorder, unspecified; J93.11 Primary spontaneous pneumothorax; Z88.0 Allergy status to penicillin; Z88.5 Allergy status to narcotic agent; Z91.040 Latex allergy status; Z79.899 Other long term (current) drug therapy
CPT/HCPCS: 36415; 70543; 70553; 80047; 81001; 82607; 84425; 85025; 85652; 86140; 96361; 96374; 96375; 99284; A9576; J1200; J1885; J2765